=== PATIENT | female | born 1965 ===

== ENCOUNTER → 2017-08-25 08:41 | Outpatient (CLI) | payer OTHER ==
[~2017-08-25] VITALS: Ht 152.4 cm; Wt 77.1 kg
[~2017-08-25 08:41] MED LIST: ALLEGRA ALLERG180 MG PO; CATAFLAM 50 MG PO; CLONAZEPAM0.5 MG; FLONASE16 GM NS; GILTUSS TR TAB1 EACH PO; KETOROLAC IM; MAXITROL EYE O3.5 GM OP; NORFLEX 100 MG PO; TESSALON PERLE100 MG PO; VITAMIN E400 UNI6
== END | disposition home or self-care (01) ==
LOC: PPHC 08:41
DX: J00 Acute nasopharyngitis [common cold] (principal)